=== PATIENT | female | born 1935 | race Caucasian/White ===

== ENCOUNTER → 2017-03-07 | Outpatient (CLI) | payer MEDICARE | END | disposition home or self-care (01) | LOC: PCVCCLINIC 11:40 | PROVIDERS: ATTEND Internal Medicine Cardiovascular Disease | DX: I10 Essential (primary) hypertension (principal); E78.1 Pure hyperglyceridemia; D86.9 Sarcoidosis, unspecified; I27.2 Other secondary pulmonary hypertension; Z79.82 Long term (current) use of aspirin; Z79.899 Other long term (current) drug therapy; Z88.8 Allergy status to other drugs, medicaments and biological substances | CPT/HCPCS: 80061; 93005; G0463 ==

== ENCOUNTER → 2017-11-07 | Outpatient (CLI) | payer MEDICARE | END | disposition home or self-care (01) | LOC: PCVCCLINIC 10:52 | DX: I73.9 Peripheral vascular disease, unspecified (principal); I10 Essential (primary) hypertension; J44.9 Chronic obstructive pulmonary disease, unspecified; D86.0 Sarcoidosis of lung; E78.00 Pure hypercholesterolemia, unspecified; R94.31 Abnormal electrocardiogram [ECG] [EKG]; Z79.82 Long term (current) use of aspirin; Z79.899 Other long term (current) drug therapy | CPT/HCPCS: 80061; 93005; 93925; G0463 ==

== ENCOUNTER → 2018-06-20 | Outpatient (CLI) | payer MEDICARE ==
--- NOTE | 2018-06-20 15:16 | PCVCIMAG ---
APPROVED REPORT Study performed: 06/20/2018 10:15:24 EXAM: Comprehensive 2D, Doppler, and color-flow Echocardiogram Patient Location: Echo lab Status: routine BSA: 1.83 HR: 72 bpmBP: 104/64 mmHg Rhythm: NSR Other Information Study Quality: AdequateTechnically Limited Risk Factors: Cardiac Risk Factors: Hyperlipidemia, HTN Indications COPD, sarcoidosis 2D Dimensions IVSd: 10.09 (7-11mm)LVOT Diam: 19.27 (18-24mm) LVDd: 34.86 mm PWd: 8.49 (7-11mm)Ascending Ao: 39.06 (22-36mm) LVDs: 24.64 (25-40mm) Left Atrium: 31.22 (27-40mm) Aortic Root: 29.49 mm LV Single Plane 4CH: 58.38 % LV Single Plane 2CH: 66.95 % Biplane EF: 62.4 % Volumes Left Atrial Volume (Systole) Single Plane 4CH: 21.46 mLSingle Plane 2CH: 25.95 mL LA ESV Index: 14.00 mL/m2 Aortic Valve AoV Peak Chris.: 1.56 m/s AO Peak Gr.: 9.77 mmHgLVOT Max P.19 mmHg LVOT Max V: 1.43 m/s SUJATHA Vmax: 2.67 cm2 Mitral Valve E/A Ratio: 0.6 MV Decel. Time: 301.33 ms MV E Max Chris.: 0.74 m/s MV A Chris.: 1.16 m/s TDI E/Lateral E': 12.33E/Medial E': 14.80 Medial E' Chris.: 0.05 m/s Lateral E' Chris.: 0.06 m/s Pulmonary Valve PV Peak Gr.: 2.75 mmHg Pulmonary Vein P Vein S: 0.55 m/sP Vein A: 0.33 m/s P Vein D: 0.34 m/sP Vein A Dur.: 86.5 msec P Vein S/D Ratio: 1.62 Tricuspid Valve TR Peak Chris.: 2.79 m/s TR Peak Gr.: 31.20 mmHg Left Ventricle The left ventricle is normal size. There is normal LV segmental wall motion. There is normal left ventricular wall thickness. Left ventricular systolic function is normal. The left ventricular ejection fraction is within the normal range. LVEF is 60-65%. Grade I - abnormal relaxation pattern. Right Ventricle The right ventricle is normal size. The right ventricular systolic function is normal. Atria The left atrium size is normal. The right atrium size is normal. Aortic Valve The aortic valve is normal in structure. No aortic regurgitation is present. There is no aortic valvular stenosis. Mitral Valve The mitral valve is normal in structure. Trace mitral regurgitation. No evidence of mitral valve stenosis. Tricuspid Valve The tricuspid valve is normal in structure. Trace tricuspid regurgitation. Pulmonary artery pressure is 39mmHg. Pulmonic Valve The pulmonary valve is normal in structure. Trace pulmonic regurgitation. Great Vessels The aortic root is normal in size. IVC is normal in size and collapses >50% with inspiration. Pericardium There is no pericardial effusion. <Conclusion> The left ventricle is normal size. LVEF is 60-65%. Grade I - abnormal relaxation pattern. The right ventricle is normal size. The left atrium size is normal. The aortic valve is normal in structure. Trace mitral regurgitation. Trace tricuspid regurgitation. Pulmonary artery pressure is 39mmHg. The aortic root is normal in size. There is no pericardial effusion.
== END | disposition home or self-care (01) ==
LOC: PCVCIMAG 12:42
PROVIDERS: ATTEND Internal Medicine Cardiovascular Disease
DX: I10 Essential (primary) hypertension (principal); J44.9 Chronic obstructive pulmonary disease, unspecified; D86.9 Sarcoidosis, unspecified; E78.00 Pure hypercholesterolemia, unspecified; I73.9 Peripheral vascular disease, unspecified; Z79.82 Long term (current) use of aspirin
CPT/HCPCS: 80061; 93005; 93306; G0463

== ENCOUNTER → 2019-03-27 | Outpatient (CLI) | payer MEDICARE | END | disposition home or self-care (01) | LOC: PCVCCLINIC 11:00 | PROVIDERS: ATTEND Internal Medicine Cardiovascular Disease | DX: I10 Essential (primary) hypertension (principal); E78.00 Pure hypercholesterolemia, unspecified; D86.0 Sarcoidosis of lung; I73.9 Peripheral vascular disease, unspecified; I27.20 Pulmonary hypertension, unspecified; Z79.82 Long term (current) use of aspirin | CPT/HCPCS: 36415; 80061; 93005; G0463 ==